=== PATIENT | female | born 1965 | race Caucasian/White ===

== ENCOUNTER 2017-03-18 14:35 | Inpatient (IN) | payer OTHER ==
[~2017-03-18] VITALS: Ht 175.3 cm; Wt 93.4 kg
[~2017-03-18 14:35] MED LIST: ALPRAZOLAM0.25 M2 PO; ALTACE1.25 MG PO; ASPIR 8181 M1 PO; ERGOCALCIF50000 UNIT PO; GABAPENTIN300 MG PO; HUMALOG100 UNIT/2 SC; LANTUS 3 M100 UNITS1 SC; NORCO 5/3251 TABLET PO; NOVOLOG PE100 UNITS/ SC; SYNTHROID88 MCG PO; ZOFRAN ODT4 MG PO
[2017-03-18 17:08] LABS: EOSINOPHIL (%) 0.2 % (0-5); HEMATOCRIT 45.5 % (36.0-46.0); IMMATURE GRANULOCYTE (%) 0.3 % (0.0-0.7); INSTRUMENT ABS NEUTROPHIL CT 10.6 K/uL; LYMPHOCYTE COUNT 1.1 K/uL (1.0-2.8); MCH 30.9 PG (29.0-34.0); MCHC 32.3 G/DL (30.0-36.0); MCV 95.8 FL (83-99); MONOCYTE (%) 5.2 % (3-12); MONOCYTE COUNT 0.7 K/uL (0-0.8); NEUTROPHIL (%) 85.1 % (45-76); NEUTROPHIL COUNT 10.6 K/uL (1.8-6.4); PLATELET COUNT 215 K/uL (156-360); RBC DIS.WIDTH-CV 12.3 % (11.8-14.6); RBC DIS.WIDTH-SD 43.9 % (39-53); RED BLOOD COUNT 4.75 M/uL (3.80-5.20); WHITE BLOOD COUNT 12.4 K/uL (4.1-10.2)
[2017-03-18 17:23] LABS: CHLORIDE 108 mEq/L (99-109); POTASSIUM 4.2 mEq/L (3.7-5.4); SODIUM 141 mEq/L (136-147)
[2017-03-18 17:25] LABS: GLUCOSE 155 mg/dL (70-99)
[2017-03-18 17:26] LABS: ANION GAP 14 MEQ/L (2-14)
[2017-03-18 17:27] LABS: TOTAL BILIRUBIN 0.7 mg/dL (0.0-1.0)
[2017-03-18 17:29] LABS: ALKALINE PHOSPHATASE 60 IU/L (3-129); GFR ESTIMATE (CALCULATED) 39 mL/min/
[2017-03-18 17:30] LABS: UREA NITROGEN (BUN) 33 mg/dL (9-23)
[2017-03-18 17:32] LABS: TROP-I INTERPRETATION NEGATIVE; TROPONIN-I 0.02 ng/mL (0.0-0.30)
[2017-03-18 18:20] LABS: C DIFF TOXIN NEGATIVE (NEGATIVE)
[2017-03-18 18:23] LABS: PROBE CHECK PASS; SPECIMEN PROCESSING CONTROL PASS
[2017-03-18] MEDS ORDERED: HUMALOG100 UNIT/2 SC (20:02)
[2017-03-18] MEDS ORDERED: TOUJEO SOL300 UNIT/1 SC ×2 (20:02→23:43)
[2017-03-18] MEDS ORDERED: CHOLEST OFF450 MG PO (20:04)
[2017-03-18 23:19] VITALS: BP 143/68
[2017-03-18] MEDS ORDERED: HUMALOG MI100 UNIT/1 SC (23:43)
[2017-03-19 04:00] VITALS: BP 125/78
[2017-03-19 06:26] LABS: POINT-OF-CARE METER ID UU13113725
[2017-03-19 07:48] VITALS: BP 133/76
[2017-03-19 10:24] LABS: EOSINOPHIL (%) 0 % (0-5); IMMATURE GRANULOCYTE (%) 0.6 % (0.0-0.7); IMMATURE GRANULOCYTE COUNT 0.1 K/uL; INSTRUMENT ABS NEUTROPHIL CT 8.5 K/uL; MCH 30.9 PG (29.0-34.0); MCHC 31.9 G/DL (30.0-36.0); MCV 96.8 FL (83-99); MEAN PLAT.VOLUME 11.3 uM^3 (9.5-12.4); MONOCYTE (%) 6.1 % (3-12); MONOCYTE COUNT 0.6 K/uL (0-0.8); NEUTROPHIL (%) 83.2 % (45-76); NEUTROPHIL COUNT 8.5 K/uL (1.8-6.4); PLATELET COUNT 182 K/uL (156-360); RBC DIS.WIDTH-CV 12.7 % (11.8-14.6); RBC DIS.WIDTH-SD 45.5 % (39-53); RED BLOOD COUNT 3.72 M/uL (3.80-5.20); WHITE BLOOD COUNT 10.2 K/uL (4.1-10.2)
[2017-03-19 10:53] LABS: ANION GAP 7 MEQ/L (2-14); CHLORIDE 108 MEQ/L (99-109); GFR ESTIMATE (CALCULATED) > 59 mL/min/; POTASSIUM 4.6 MEQ/L (3.7-5.4); SAMPLE HEMOLYSIS CHECK 0; SAMPLE ICTERIC CHECK 0; SAMPLE LIPEMIA CHECK 0; SODIUM 139 MEQ/L (136-147); UREA NITROGEN (BUN) 30 mg/dL (9-23)
[2017-03-19 10:55] LABS: GLUCOSE 316 mg/dL (70-99)
[2017-03-19 11:46] VITALS: BP 147/71
[2017-03-19 15:45] LABS: HEMATOCRIT 38.1 % (36.0-46.0); MCV 96.5 FL (83-99)
[2017-03-19 19:25] LABS: POINT-OF-CARE METER ID UU13113725; POINT-OF-CARE USER ID 611181321
[2017-03-19 19:41] VITALS: BP 176/96
[2017-03-19 21:18] LABS: POINT-OF-CARE METER ID UU13113725
[2017-03-19 21:58] LABS: HEMATOCRIT 35.7 % (36.0-46.0); MCV 96.2 FL (83-99)
[2017-03-19 23:27] VITALS: BP 176/78
[2017-03-20 02:04] LABS: POINT-OF-CARE METER ID UU13113725; POINT-OF-CARE USER ID 611181321
[2017-03-20 03:52] VITALS: BP 145/70
[2017-03-20 06:51] LABS: EOSINOPHIL (%) 0.4 % (0-5); HEMATOCRIT 35.1 % (36.0-46.0); IMMATURE GRANULOCYTE (%) 0.4 % (0.0-0.7); INSTRUMENT ABS NEUTROPHIL CT 7.2 K/uL; LYMPHOCYTE COUNT 2.2 K/uL (1.0-2.8); MCH 32.2 PG (29.0-34.0); MCHC 33.3 G/DL (30.0-36.0); MCV 96.7 FL (83-99); MONOCYTE (%) 6.3 % (3-12); MONOCYTE COUNT 0.6 K/uL (0-0.8); NEUTROPHIL (%) 70.9 % (45-76); NEUTROPHIL COUNT 7.2 K/uL (1.8-6.4); PLATELET COUNT 173 K/uL (156-360); RBC DIS.WIDTH-CV 12.5 % (11.8-14.6); RBC DIS.WIDTH-SD 44.2 % (39-53); RED BLOOD COUNT 3.63 M/uL (3.80-5.20); WHITE BLOOD COUNT 10.1 K/uL (4.1-10.2)
[2017-03-20 07:33] LABS: ANION GAP 10 MEQ/L (2-14); CHLORIDE 106 MEQ/L (99-109); GFR ESTIMATE (CALCULATED) > 59 mL/min/; GLUCOSE 238 mg/dL (70-99); POTASSIUM 4.4 MEQ/L (3.7-5.4); SAMPLE HEMOLYSIS CHECK 0; SAMPLE ICTERIC CHECK 0; SAMPLE LIPEMIA CHECK 0; SODIUM 140 MEQ/L (136-147); UREA NITROGEN (BUN) 16 mg/dL (9-23)
[2017-03-20 07:53] LABS: ADD MIUA? YES; BILIRUBIN NEGATIVE; BLOOD SMALL; COLOR YELLOW ((YELLOW)); GLUCOSE (STRIP) >=500; KETONES 20; LEUKOCYTES SMALL; NITRITE NEGATIVE; PROTEIN (STRIP) NEGATIVE; SPECIFIC GRAVITY 1.015 (1.000-1.030); UROBILINOGEN 0.2 MG/DL (0.2-1.0)
[2017-03-20 07:55] VITALS: BP 174/78
[2017-03-20 08:08] LABS: BACTERIA RARE /HPF; EPITHELIAL CELLS RARE /HPF; MUCUS TRACE /LPF; RED BLOOD CELLS 0-5 /HPF (0-5); UCUL ADDED? YES
[2017-03-20 11:59] LABS: POINT-OF-CARE METER ID UU13113675
[2017-03-20 14:57] LABS: HEMATOCRIT 37.1 % (36.0-46.0); MCV 96.6 FL (83-99)
[2017-03-20 15:47] VITALS: BP 139/63
[2017-03-20 21:59] LABS: HEMATOCRIT 36.5 % (36.0-46.0); MCV 98.1 FL (83-99)
[2017-03-20 22:13] LABS: POINT-OF-CARE METER ID UU13113725
[2017-03-21] VITALS (14 sets, daily range): BP systolic 79–138; BP diastolic 42–72
[2017-03-21 06:20] LABS: POINT-OF-CARE METER ID UU13113725
[2017-03-21 06:26] LABS: EOSINOPHIL (%) 0 % (0-5); HEMATOCRIT 35.3 % (36.0-46.0); IMMATURE GRANULOCYTE (%) 0.5 % (0.0-0.7); IMMATURE GRANULOCYTE COUNT 0.1 K/uL; INSTRUMENT ABS NEUTROPHIL CT 12.4 K/uL; LYMPHOCYTE COUNT 1.5 K/uL (1.0-2.8); MCH 31.2 PG (29.0-34.0); MCHC 31.4 G/DL (30.0-36.0); MCV 99.2 FL (83-99); MEAN PLAT.VOLUME 11.2 uM^3 (9.5-12.4); MONOCYTE COUNT 1.1 K/uL (0-0.8); NEUTROPHIL (%) 82.2 % (45-76); NEUTROPHIL COUNT 12.4 K/uL (1.8-6.4); PLATELET COUNT 192 K/uL (156-360); RBC DIS.WIDTH-CV 12.6 % (11.8-14.6); RED BLOOD COUNT 3.56 M/uL (3.80-5.20); WHITE BLOOD COUNT 15.1 K/uL (4.1-10.2)
[2017-03-21 06:54] LABS: ANION GAP 22 MEQ/L (2-14); CHLORIDE 100 MEQ/L (99-109); GFR ESTIMATE (CALCULATED) 50 mL/min/; GLUCOSE 321 mg/dL (70-99); POTASSIUM 4.9 MEQ/L (3.7-5.4); SAMPLE HEMOLYSIS CHECK 1; SAMPLE ICTERIC CHECK 0; SAMPLE LIPEMIA CHECK 0; SODIUM 134 MEQ/L (136-147)
[2017-03-21 06:57] LABS: UREA NITROGEN (BUN) 32 mg/dL (9-23)
[2017-03-21 07:31] LABS: ERTH.SED.RATE 12 MM/HR (0-30)
[2017-03-21 10:08] LABS: HEMATOCRIT 34.3 % (36.0-46.0); MCV 99.1 FL (83-99)
[2017-03-21 14:45] LABS: GLUCOSE 613 mg/dL (70-99)
[2017-03-21 14:51] LABS: HEMATOCRIT 34.6 % (36.0-46.0); MCV 99.1 FL (83-99)
[2017-03-21 17:06] LABS: GLUCOSE 527 mg/dL (70-99)
[2017-03-21 17:44] LABS: POINT-OF-CARE METER ID UU13113725
[2017-03-21 17:46] LABS: POINT-OF-CARE METER ID UU13113725
[2017-03-21 17:46] LABS: POINT-OF-CARE METER ID UU13113725
[2017-03-21 18:32] LABS: METH RESISTANT S AUREUS PCR NEGATIVE (NEGATIVE)
[2017-03-21 19:40] LABS: PROBE CHECK PASS; SPECIMEN PROCESSING CONTROL PASS
[2017-03-21 20:39] LABS: HEMATOCRIT 33.5 % (36.0-46.0)
[2017-03-21 21:07] LABS: ANION GAP 21 MEQ/L (2-14); CHLORIDE 101 MEQ/L (99-109); GFR ESTIMATE (CALCULATED) 42 mL/min/; POTASSIUM 4.3 MEQ/L (3.7-5.4); SAMPLE HEMOLYSIS CHECK 0; SAMPLE ICTERIC CHECK 0; SAMPLE LIPEMIA CHECK 0; SODIUM 135 MEQ/L (136-147); UREA NITROGEN (BUN) 36 mg/dL (9-23)
[2017-03-21 21:11] LABS: GLUCOSE 447 mg/dL (70-99)
[2017-03-21 21:40] LABS: POINT-OF-CARE METER ID UU14162636
[2017-03-21 22:28] LABS: POINT-OF-CARE METER ID UU14162636
[2017-03-21 23:38] LABS: POINT-OF-CARE METER ID UU14162636
[2017-03-22] VITALS (22 sets, daily range): BP systolic 93–151; BP diastolic 44–78
[2017-03-22 00:38] LABS: POINT-OF-CARE METER ID UU14162636
[2017-03-22 00:46] LABS: CHLORIDE 105 mEq/L (99-109); SODIUM 136 mEq/L (136-147)
[2017-03-22 00:47] LABS: GLUCOSE 294 mg/dL (70-99)
[2017-03-22 00:49] LABS: ANION GAP 9 MEQ/L (2-14)
[2017-03-22 00:51] LABS: GFR ESTIMATE (CALCULATED) 36 mL/min/
[2017-03-22 00:52] LABS: UREA NITROGEN (BUN) 38 mg/dL (9-23)
[2017-03-22 01:39] LABS: POINT-OF-CARE METER ID UU14208751
[2017-03-22 02:51] LABS: POINT-OF-CARE METER ID UU14208751
[2017-03-22 03:59] LABS: POINT-OF-CARE METER ID UU14208751
[2017-03-22 04:54] LABS: POINT-OF-CARE METER ID UU14208751
[2017-03-22 05:56] LABS: POINT-OF-CARE METER ID UU13113803
[2017-03-22 06:37] LABS: ANION GAP 8 MEQ/L (2-14); CHLORIDE 108 MEQ/L (99-109); GFR ESTIMATE (CALCULATED) 50 mL/min/; POTASSIUM 4.4 MEQ/L (3.7-5.4); SAMPLE HEMOLYSIS CHECK 0; SAMPLE ICTERIC CHECK 0; SAMPLE LIPEMIA CHECK 0; SODIUM 139 MEQ/L (136-147); UREA NITROGEN (BUN) 33 mg/dL (9-23)
[2017-03-22 06:40] LABS: GLUCOSE 139 mg/dL (70-99)
[2017-03-22 06:59] LABS: POINT-OF-CARE METER ID UU14208751
[2017-03-22 08:10] LABS: POINT-OF-CARE METER ID UU14208751
[2017-03-22 08:53] LABS: BASOPHIL COUNT 0.1 K/uL (0-0.1); EOSINOPHIL (%) 0.4 % (0-5); HEMATOCRIT 34.1 % (36.0-46.0); IMMATURE GRANULOCYTE (%) 0.3 % (0.0-0.7); INSTRUMENT ABS NEUTROPHIL CT 7.5 K/uL; LYMPHOCYTE COUNT 2.4 K/uL (1.0-2.8); MCH 31.3 PG (29.0-34.0); MCHC 32.8 G/DL (30.0-36.0); MCV 95.3 FL (83-99); MEAN PLAT.VOLUME 10.7 uM^3 (9.5-12.4); MONOCYTE (%) 7.1 % (3-12); MONOCYTE COUNT 0.8 K/uL (0-0.8); NEUTROPHIL (%) 69.2 % (45-76); NEUTROPHIL COUNT 7.5 K/uL (1.8-6.4); PLATELET COUNT 194 K/uL (156-360); RBC DIS.WIDTH-SD 45.6 % (39-53); RED BLOOD COUNT 3.58 M/uL (3.80-5.20); WHITE BLOOD COUNT 10.8 K/uL (4.1-10.2)
[2017-03-22 09:14] LABS: POINT-OF-CARE METER ID UU13113803
[2017-03-22 09:18] LABS: ANION GAP 9 MEQ/L (2-14); CHLORIDE 108 MEQ/L (99-109); GFR ESTIMATE (CALCULATED) 55 mL/min/; GLUCOSE 140 mg/dL (70-99); POTASSIUM 4.1 MEQ/L (3.7-5.4); SAMPLE HEMOLYSIS CHECK 0; SAMPLE ICTERIC CHECK 0; SAMPLE LIPEMIA CHECK 0; SODIUM 141 MEQ/L (136-147); UREA NITROGEN (BUN) 30 mg/dL (9-23)
[2017-03-22 10:41] LABS: POINT-OF-CARE METER ID UU13113731; POINT-OF-CARE USER ID 612031313
[2017-03-22 11:28] LABS: POINT-OF-CARE METER ID UU13113803
[2017-03-22 12:36] LABS: POINT-OF-CARE METER ID UU13113803
[2017-03-22 13:19] LABS: ANION GAP 9 MEQ/L (2-14); CHLORIDE 107 MEQ/L (99-109); GFR ESTIMATE (CALCULATED) > 59 mL/min/; GLUCOSE 185 mg/dL (70-99); POTASSIUM 4.1 MEQ/L (3.7-5.4); SAMPLE HEMOLYSIS CHECK 0; SAMPLE ICTERIC CHECK 0; SAMPLE LIPEMIA CHECK 0; SODIUM 139 MEQ/L (136-147); UREA NITROGEN (BUN) 28 mg/dL (9-23)
[2017-03-22 13:55] LABS: POINT-OF-CARE METER ID UU14208751
[2017-03-22 15:59] LABS: POINT-OF-CARE METER ID UU14208751
[2017-03-22 16:35] LABS: ANION GAP 6 MEQ/L (2-14); CHLORIDE 105 MEQ/L (99-109); GFR ESTIMATE (CALCULATED) > 59 mL/min/; GLUCOSE 287 mg/dL (70-99); SAMPLE HEMOLYSIS CHECK 0; SAMPLE ICTERIC CHECK 0; SAMPLE LIPEMIA CHECK 0; SODIUM 136 MEQ/L (136-147); UREA NITROGEN (BUN) 26 mg/dL (9-23)
[2017-03-22 20:47] LABS: POINT-OF-CARE METER ID UU13113731
[2017-03-23] VITALS (14 sets, daily range): BP systolic 115–180; BP diastolic 66–122
[2017-03-23 06:00] LABS: EOSINOPHIL (%) 1.6 % (0-5); EOSINOPHIL COUNT 0.1 K/uL (0-0.3); HEMATOCRIT 38.6 % (36.0-46.0); IMMATURE GRANULOCYTE (%) 0.2 % (0.0-0.7); INSTRUMENT ABS NEUTROPHIL CT 3.1 K/uL; LYMPHOCYTE COUNT 2.8 K/uL (1.0-2.8); MCH 30.7 PG (29.0-34.0); MCHC 32.1 G/DL (30.0-36.0); MCV 95.5 FL (83-99); MONOCYTE (%) 7.6 % (3-12); MONOCYTE COUNT 0.5 K/uL (0-0.8); NEUTROPHIL (%) 47.2 % (45-76); NEUTROPHIL COUNT 3.1 K/uL (1.8-6.4); RBC DIS.WIDTH-CV 13.2 % (11.8-14.6); RBC DIS.WIDTH-SD 46.9 % (39-53); RED BLOOD COUNT 4.04 M/uL (3.80-5.20); WHITE BLOOD COUNT 6.4 K/uL (4.1-10.2)
[2017-03-23 06:34] LABS: ALKALINE PHOSPHATASE 49 IU/L (3-129); ANION GAP 6 MEQ/L (2-14); CHLORIDE 105 MEQ/L (99-109); GFR ESTIMATE (CALCULATED) > 59 mL/min/; SAMPLE HEMOLYSIS CHECK 1; SAMPLE ICTERIC CHECK 0; SAMPLE LIPEMIA CHECK 0; SODIUM 141 MEQ/L (136-147); TOTAL BILIRUBIN 0.5 MG/DL (0.0-1.0); UREA NITROGEN (BUN) 18 mg/dL (9-23)
[2017-03-23 06:36] LABS: GLUCOSE 110 mg/dL (70-99)
[2017-03-23 07:06] LABS: MEAN PLAT.VOLUME 11.3 uM^3 (9.5-12.4); PLATELET CLUMPS PRESENT - PLATELET COUNT APPEARS ADQ.; PLATELET COUNT 182 K/uL (156-360)
[2017-03-23 07:25] LABS: TROP-I INTERPRETATION POSITIVE; TROPONIN-I 0.84 ng/mL (0.0-0.30)
[2017-03-23 11:48] LABS: POINT-OF-CARE METER ID UU13113803
[2017-03-23 12:58] LABS: TROP-I INTERPRETATION POSITIVE; TROPONIN-I 0.64 ng/mL (0.0-0.30)
[2017-03-23 17:04] LABS: POINT-OF-CARE METER ID UU13113803
[2017-03-23 21:54] LABS: POINT-OF-CARE METER ID UU14208751
[2017-03-24] VITALS (11 sets, daily range): BP systolic 138–198; BP diastolic 72–94
[2017-03-24 08:57] LABS: POINT-OF-CARE METER ID UU13113803
[2017-03-24 12:12] LABS: POINT-OF-CARE METER ID UU13113803
[2017-03-24 17:40] LABS: POINT-OF-CARE METER ID UU13113803
[2017-03-24 21:26] LABS: POINT-OF-CARE METER ID UU14208753
[2017-03-25 03:31] VITALS: BP 186/85
[2017-03-25 06:09] LABS: EOSINOPHIL (%) 1.4 % (0-5); EOSINOPHIL COUNT 0.1 K/uL (0-0.3); HEMATOCRIT 34.7 % (36.0-46.0); IMMATURE GRANULOCYTE (%) 0.5 % (0.0-0.7); INSTRUMENT ABS NEUTROPHIL CT 3.1 K/uL; LYMPHOCYTE COUNT 2.3 K/uL (1.0-2.8); MCH 31.2 PG (29.0-34.0); MCHC 32.9 G/DL (30.0-36.0); MCV 95.1 FL (83-99); MEAN PLAT.VOLUME 10.8 uM^3 (9.5-12.4); MONOCYTE (%) 7.8 % (3-12); MONOCYTE COUNT 0.5 K/uL (0-0.8); NEUTROPHIL (%) 51.7 % (45-76); NEUTROPHIL COUNT 3.1 K/uL (1.8-6.4); PLATELET COUNT 191 K/uL (156-360); RBC DIS.WIDTH-CV 12.9 % (11.8-14.6); RBC DIS.WIDTH-SD 45.1 % (39-53); RED BLOOD COUNT 3.65 M/uL (3.80-5.20); WHITE BLOOD COUNT 5.9 K/uL (4.1-10.2)
[2017-03-25 06:31] LABS: ANION GAP 9 MEQ/L (2-14); CHLORIDE 103 MEQ/L (99-109); GFR ESTIMATE (CALCULATED) > 59 mL/min/; GLUCOSE 55 mg/dL (70-99); POTASSIUM 3.3 MEQ/L (3.7-5.4); SAMPLE HEMOLYSIS CHECK 0; SAMPLE ICTERIC CHECK 0; SAMPLE LIPEMIA CHECK 0; SODIUM 145 MEQ/L (136-147); UREA NITROGEN (BUN) 10 mg/dL (9-23)
[2017-03-25 06:34] LABS: TROP-I INTERPRETATION INDETERMINATE; TROPONIN-I 0.35 ng/mL (0.0-0.30)
[2017-03-25 06:34] LABS: POINT-OF-CARE METER ID UU14188577
[2017-03-25 07:36] VITALS: BP 162/98
[2017-03-25 07:45] VITALS: BP 168/84
[2017-03-25 09:19] VITALS: BP 122/72
[2017-03-25 11:35] VITALS: BP 174/82
[2017-03-25 11:35] LABS: POINT-OF-CARE METER ID UU14117124
[2017-03-25] MEDS ORDERED: RAMIPRIL10 MG PO (12:45)
[2017-03-25] MEDS ORDERED: AMLODIPINE BESYL5 MG PO (12:45)
== END 2017-03-25 14:14 | disposition home or self-care (01) | DRG 682 ==
LOC: EME 14:35 → EDOF 20:55 → ENRESERV 21:10 → CANRESERV 21:17 → 4WEST 22:23 → 5EAST 22:23 → EDOF 22:23 → ENRESERV 22:28 → 5EAST 22:38 → ENRESERV 22:45 → 5EAST 22:59 → ENRESERV 03-21 16:27 → 4WEST 03-21 17:10 → ENRESERV 03-24 11:42 → 3EAST 03-24 17:52
PROVIDERS: Emergency Medicine; Family Medicine; Internal Medicine; Internal Medicine Critical Care Medicine; Internal Medicine Gastroenterology; Obstetrics & Gynecology
DX: N17.9 Acute kidney failure, unspecified (principal); K55.039 Acute (reversible) ischemia of large intestine, extent unspecified; E13.10 Other specified diabetes mellitus with ketoacidosis without coma; A04.8 Other specified bacterial intestinal infections; K63.3 Ulcer of intestine; N39.0 Urinary tract infection, site not specified; E03.9 Hypothyroidism, unspecified; E86.0 Dehydration; I25.10 Atherosclerotic heart disease of native coronary artery without angina pectoris; I10 Essential (primary) hypertension; E78.5 Hyperlipidemia, unspecified; K21.9 Gastro-esophageal reflux disease without esophagitis; E11.42 Type 2 diabetes mellitus with diabetic polyneuropathy; I95.9 Hypotension, unspecified; E87.8 Other disorders of electrolyte and fluid balance, not elsewhere classified; R74.8 Abnormal levels of other serum enzymes; F41.9 Anxiety disorder, unspecified; Z79.82 Long term (current) use of aspirin; I25.2 Old myocardial infarction; Z90.49 Acquired absence of other specified parts of digestive tract; Z79.4 Long term (current) use of insulin; Z83.3 Family history of diabetes mellitus; Z82.49 Family history of ischemic heart disease and other diseases of the circulatory system
CPT/HCPCS: 71010; 74176; 80048; 80048 91; 80053; 80069; 81003; 82947; 82947 91; 82948; 83605; 83735; 83880; 84100; 84484; 85014; 85018; 85025; 85651; 86140; 86850; 86900; 86901; 87040; 87086; 87493; 87641; 88305; 93005; 93306; 99281; 99285; C9113; J0295; J0360; J0744; J1644; J1815; J2310; J2405; J7030; J7050; S0030

== ENCOUNTER 2017-12-24 09:48 | Inpatient (IN) | payer OTHER ==
[2017-12-24] VITALS (10 sets, daily range): BP systolic 91–143; BP diastolic 51–79
[~2017-12-24] VITALS: Ht 175.3 cm; Wt 100.5 kg
[~2017-12-24 09:48] MED LIST changes: +AMLODIPINE BESYL5 MG PO; +CHOLEST OFF450 MG PO; +HUMALOG MI100 UNIT/1 SC; +RAMIPRIL10 MG PO; +SYNTHROID112 MCG PO; -SYNTHROID88 MCG PO; +TOUJEO SOL300 UNIT/1 SC
[2017-12-24 10:42] LABS: BASOPHIL (%) 0.5 % (0-1); BASOPHIL COUNT 0.1 K/uL (0-0.1); EOSINOPHIL (%) 1.2 % (0-5); EOSINOPHIL COUNT 0.1 K/uL (0-0.3); HEMOGLOBIN 13.9 G/DL (11.9-15.5); IMMATURE GRANULOCYTE (%) 0.3 % (0.0-0.7); LYMPHOCYTE COUNT 3.2 K/uL (1.0-2.8); MCH 31.6 PG (29.0-34.0); MCHC 33.1 G/DL (30.0-36.0); MCV 95.5 FL (83-99); MONOCYTE (%) 4.3 % (3-12); MONOCYTE COUNT 0.5 K/uL (0-0.8); NEUTROPHIL (%) 63.7 % (45-76); NEUTROPHIL COUNT 6.8 K/uL (1.8-6.4); PLATELET COUNT 178 K/uL (156-360); RBC DIS.WIDTH-CV 12.3 % (11.8-14.6); RBC DIS.WIDTH-SD 42.8 % (39-53); WHITE BLOOD COUNT 10.6 K/uL (4.1-10.2)
[2017-12-24 10:49] LABS: ALBUMIN 2.8 g/dL (3.2-4.8)
[2017-12-24 10:50] LABS: CHLORIDE 111 mEq/L (99-109); POTASSIUM 3.7 mEq/L (3.7-5.4); SODIUM 139 mEq/L (136-147)
[2017-12-24 10:52] LABS: GLUCOSE 175 mg/dL (70-99)
[2017-12-24 10:54] LABS: TOTAL BILIRUBIN 0.6 mg/dL (0.0-1.0)
[2017-12-24 10:55] LABS: ALKALINE PHOSPHATASE 49 IU/L (3-129)
[2017-12-24 10:56] LABS: CREATININE 1.2 mg/dL (0.6-1.3); GFR ESTIMATE (CALCULATED) 50 mL/min/
[2017-12-24 10:57] LABS: AST (GOT) 22 IU/L (2-34); UREA NITROGEN (BUN) 24 mg/dL (9-23)
[2017-12-24 10:58] LABS: ALT (GPT) 36 IU/L (3-49)
[2017-12-24 11:44] LABS: PTT 24.3 SEC (25-37)
[2017-12-24 11:51] LABS: LIPASE 28 U/L (1.0-51.0)
[2017-12-24 11:57] LABS: TROP-I INTERPRETATION NEGATIVE; TROPONIN-I 0.01 ng/mL (0.0-0.30)
[2017-12-24 12:45] LABS: AMPHETAMINE NEGATIVE (500 ng/mL); BARBITURATES NEGATIVE (200 ng/mL); BENZODIAZEPINES NEGATIVE (150 ng/mL); BUPRENORPHINE NEGATIVE (10 ng/mL); COCAINE NEGATIVE (150 ng/mL); METHADONE NEGATIVE (200 ng/mL); METHAMPHETAMINE NEGATIVE (500 ng/mL); OPIATES (MORPHINE) NEGATIVE (100 ng/mL); OXYCODONE NEGATIVE (100 ng/mL); PHENCYCLIDINE NEGATIVE (25 ng/mL); PROPOXYPHENE NEGATIVE (300 ng/mL); THC CANNABINOIDS NEGATIVE (50 ng/mL); TRICYCLIC ANTIDEPRESSANTS NEGATIVE (300 ng/mL)
[2017-12-24 13:17] LABS: C DIFF TOXIN POSITIVE (NEGATIVE)
[2017-12-24 13:47] LABS: COMMENTS - BLOOD GASES A+C+; SITE RR
[2017-12-24 13:48] LABS: DEVICE VENTILATOR; FI02 100 %; MECHANICAL RATE 16 resp/min; MODE AC; PEEP 5 CM/H20; TIDAL VOLUME 500 ML; TOTAL RESP RATE 20 resp/min; pH 7.37 (7.35-7.45)
[2017-12-24 13:49] LABS: O2 SATURATION (CALCULATED) 100.1 % (95-99); PCO2 34 mm Hg (35-45); PO2 569 mm Hg (80-100)
[2017-12-24 13:50] LABS: BASE EXCESS -4.8 mEq/L (-3 to +3); BICARBONATE 19.7 mEq/L (22-26); CARBOXY HGB 1.2 % (0-5); METHEMOGLOBIN 1.3 % (0-1.5)
[2017-12-24] MEDS ORDERED: RAMIPRIL10 MG PO (13:50)
[2017-12-24 23:47] LABS: HEMATOCRIT 35.2 % (36.0-46.0); MCV 97.2 FL (83-99)
[2017-12-24 23:48] LABS: HEMOGLOBIN 11.4 G/DL (11.9-15.5)
[2017-12-25] VITALS (22 sets, daily range): BP systolic 108–168; BP diastolic 50–76
[2017-12-25 05:31] LABS: BASOPHIL (%) 0.4 % (0-1); EOSINOPHIL (%) 0 % (0-5); HEMATOCRIT 33.4 % (36.0-46.0); HEMOGLOBIN 10.6 G/DL (11.9-15.5); IMMATURE GRANULOCYTE (%) 0.3 % (0.0-0.7); LYMPHOCYTE (%) 11.4 % (15-42); LYMPHOCYTE COUNT 1.3 K/uL (1.0-2.8); MCH 30.9 PG (29.0-34.0); MCHC 31.7 G/DL (30.0-36.0); MCV 97.4 FL (83-99); MONOCYTE (%) 5.4 % (3-12); MONOCYTE COUNT 0.6 K/uL (0-0.8); NEUTROPHIL (%) 82.5 % (45-76); NEUTROPHIL COUNT 9.2 K/uL (1.8-6.4); PLATELET COUNT 154 K/uL (156-360); RBC DIS.WIDTH-CV 12.8 % (11.8-14.6); WHITE BLOOD COUNT 11.2 K/uL (4.1-10.2)
[2017-12-25 05:32] LABS: RED BLOOD COUNT 3.43 M/uL (3.80-5.20)
[2017-12-25 05:57] LABS: CHLORIDE 113 MEQ/L (99-109); GFR ESTIMATE (CALCULATED) > 59 mL/min/; GLUCOSE 194 mg/dL (70-99); MAGNESIUM 1.7 mg/dl (1.3-2.7); PHOSPHORUS 3.6 mg/dL (2.5-4.9); SODIUM 140 MEQ/L (136-147); UREA NITROGEN (BUN) 22 mg/dL (9-23)
[2017-12-25 06:07] LABS: POTASSIUM 4.6 MEQ/L (3.7-5.4)
[2017-12-25 11:44] LABS: APPEARANCE CLEAR ((CLEAR)); BILIRUBIN NEGATIVE; BLOOD NEGATIVE; COLOR AMBER ((YELLOW)); GLUCOSE (STRIP) 50; KETONES NEGATIVE; LEUKOCYTES NEGATIVE; NITRITE NEGATIVE; PROTEIN (STRIP) 100; SPECIFIC GRAVITY 1.039 (1.000-1.030)
[2017-12-25 11:53] LABS: BACTERIA RARE /HPF; EPITHELIAL CELLS RARE /HPF; MUCUS NONE SEEN /LPF; RED BLOOD CELLS 0-5 /HPF (0-5); UCUL ADDED? NO; WHITE BLOOD CELLS 0-5 /HPF (0-5)
[2017-12-25 16:06] LABS: STOOL OCCULT BLD 1ST SPECIMEN POSITIVE
[2017-12-25 16:09] LABS: HEMATOCRIT 33.3 % (36.0-46.0); HEMOGLOBIN 10.6 G/DL (11.9-15.5)
[2017-12-26] VITALS (23 sets, daily range): BP systolic 110–157; BP diastolic 52–77
[2017-12-26 06:08] LABS: BASOPHIL (%) 0.4 % (0-1); EOSINOPHIL (%) 0 % (0-5); HEMATOCRIT 31.8 % (36.0-46.0); IMMATURE GRANULOCYTE (%) 0.3 % (0.0-0.7); LYMPHOCYTE (%) 13.4 % (15-42); LYMPHOCYTE COUNT 1.2 K/uL (1.0-2.8); MCH 30.9 PG (29.0-34.0); MCHC 31.4 G/DL (30.0-36.0); MCV 98.1 FL (83-99); MONOCYTE (%) 4.8 % (3-12); MONOCYTE COUNT 0.4 K/uL (0-0.8); NEUTROPHIL (%) 81.1 % (45-76); NEUTROPHIL COUNT 7.3 K/uL (1.8-6.4); PLATELET COUNT 151 K/uL (156-360); RBC DIS.WIDTH-CV 12.7 % (11.8-14.6); RBC DIS.WIDTH-SD 45.8 % (39-53); RED BLOOD COUNT 3.24 M/uL (3.80-5.20); WHITE BLOOD COUNT 9.1 K/uL (4.1-10.2)
[2017-12-26 06:39] LABS: CHLORIDE 112 MEQ/L (99-109); CREATININE 0.9 MG/DL (0.6-1.3); GFR ESTIMATE (CALCULATED) > 59 mL/min/; GLUCOSE 248 mg/dL (70-99); POTASSIUM 4.4 MEQ/L (3.7-5.4); SODIUM 142 MEQ/L (136-147); UREA NITROGEN (BUN) 16 mg/dL (9-23)
[2017-12-27] VITALS (16 sets, daily range): BP systolic 116–171; BP diastolic 57–93
[2017-12-27 05:34] LABS: HEMATOCRIT 34.4 % (36.0-46.0); MCH 31.5 PG (29.0-34.0); MCV 98.6 FL (83-99); PLATELET COUNT 160 K/uL (156-360); RBC DIS.WIDTH-CV 13.2 % (11.8-14.6); RBC DIS.WIDTH-SD 47.2 % (39-53); RED BLOOD COUNT 3.49 M/uL (3.80-5.20); WHITE BLOOD COUNT 9.4 K/uL (4.1-10.2)
[2017-12-27 06:14] LABS: CHLORIDE 109 MEQ/L (99-109); CREATININE 0.9 MG/DL (0.6-1.3); GFR ESTIMATE (CALCULATED) > 59 mL/min/; GLUCOSE 275 mg/dL (70-99); MAGNESIUM 1.6 mg/dl (1.3-2.7); POTASSIUM 4.1 MEQ/L (3.7-5.4); SODIUM 139 MEQ/L (136-147); UREA NITROGEN (BUN) 12 mg/dL (9-23)
[2017-12-27 06:15] LABS: PHOSPHORUS 1.7 mg/dL (2.5-4.9)
[2017-12-28 05:57] LABS: HEMATOCRIT 31.7 % (36.0-46.0); HEMOGLOBIN 10.2 G/DL (11.9-15.5); MCH 30.7 PG (29.0-34.0); MCHC 32.2 G/DL (30.0-36.0); MCV 95.5 FL (83-99); PLATELET COUNT 168 K/uL (156-360); RBC DIS.WIDTH-SD 45.5 % (39-53); RED BLOOD COUNT 3.32 M/uL (3.80-5.20); WHITE BLOOD COUNT 7.4 K/uL (4.1-10.2)
[2017-12-28 06:28] LABS: CHLORIDE 107 MEQ/L (99-109); CREATININE 0.8 MG/DL (0.6-1.3); GFR ESTIMATE (CALCULATED) > 59 mL/min/; GLUCOSE 216 mg/dL (70-99); MAGNESIUM 1.5 mg/dl (1.3-2.7); POTASSIUM 3.9 MEQ/L (3.7-5.4); SODIUM 143 MEQ/L (136-147); UREA NITROGEN (BUN) 10 mg/dL (9-23)
[2017-12-28 06:30] LABS: PHOSPHORUS 2.9 mg/dL (2.5-4.9)
[2017-12-28 08:35] VITALS: BP 164/98
[2017-12-28 16:04] VITALS: BP 147/64
[2017-12-29 00:14] VITALS: BP 164/73
[2017-12-29 06:17] LABS: HEMATOCRIT 34.7 % (36.0-46.0); HEMOGLOBIN 11.3 G/DL (11.9-15.5); MCH 30.6 PG (29.0-34.0); MCHC 32.6 G/DL (30.0-36.0); PLATELET COUNT 180 K/uL (156-360); RBC DIS.WIDTH-CV 12.8 % (11.8-14.6); RBC DIS.WIDTH-SD 44.6 % (39-53); RED BLOOD COUNT 3.69 M/uL (3.80-5.20); WHITE BLOOD COUNT 5.7 K/uL (4.1-10.2)
[2017-12-29 06:36] LABS: CHLORIDE 102 MEQ/L (99-109); CREATININE 0.7 MG/DL (0.6-1.3); GFR ESTIMATE (CALCULATED) > 59 mL/min/; GLUCOSE 216 mg/dL (70-99); MAGNESIUM 1.5 mg/dl (1.3-2.7); PHOSPHORUS 2.6 mg/dL (2.5-4.9); POTASSIUM 3.7 MEQ/L (3.7-5.4); SODIUM 144 MEQ/L (136-147); UREA NITROGEN (BUN) 8 mg/dL (9-23)
[2017-12-29 08:34] VITALS: BP 180/97
[2017-12-29 16:25] VITALS: BP 160/78
[2017-12-29] MEDS ORDERED: DUONEB 2.5-0.5 M3 ML AEROSOL (19:02)
== END 2017-12-29 19:49 | disposition home or self-care (01) | DRG 871 ==
LOC: EME 09:48 → 2EAST 12:46 → EDOF 12:46 → 4WEST 12:46 → ENRESERV 13:03 → 4WEST 14:35 → ENRESERV 12-27 10:42 → 2EAST 12-27 15:04
PROVIDERS: Emergency Medicine; Family Medicine; Specialist; Surgery
PROC: 0BH17EZ Insertion of Endotracheal Airway into Trachea, Via Natural or Artificial Opening (ICD-10-PCS; principal; 2017-12-24)
PROC: B546ZZA Ultrasonography of Right Subclavian Vein, Guidance (ICD-10-PCS; 2017-12-24)
PROC: 02HV33Z Insertion of Infusion Device into Superior Vena Cava, Percutaneous Approach (ICD-10-PCS; 2017-12-24)
PROC: 5A1935Z Respiratory Ventilation, Less than 24 Consecutive Hours (ICD-10-PCS; 2017-12-24)
DX: A41.9 Sepsis, unspecified organism (principal); R65.21 Severe sepsis with septic shock; A04.72 Enterocolitis due to Clostridium difficile, not specified as recurrent; J96.00 Acute respiratory failure, unspecified whether with hypoxia or hypercapnia; E87.2 Acidosis; E86.0 Dehydration; E83.39 Other disorders of phosphorus metabolism; K21.9 Gastro-esophageal reflux disease without esophagitis; E03.9 Hypothyroidism, unspecified; F41.9 Anxiety disorder, unspecified; F32.9 Major depressive disorder, single episode, unspecified; I10 Essential (primary) hypertension; E10.42 Type 1 diabetes mellitus with diabetic polyneuropathy; I25.10 Atherosclerotic heart disease of native coronary artery without angina pectoris; E66.01 Morbid (severe) obesity due to excess calories; Z79.4 Long term (current) use of insulin; I25.2 Old myocardial infarction; Z79.82 Long term (current) use of aspirin; Z68.32 Body mass index [BMI] 32.0-32.9, adult
CPT/HCPCS: 36600; 70450; 71045; 71260; 74177; 80048; 80053; 81003; 82272; 82803; 82948; 83605; 83690; 83735; 84100; 84484; 85014; 85018; 85025; 85027; 85610; 85730; 86850; 86900; 86901; 87040; 87070; 87177; 87205; 87493; 87506; 87641; 93005; 94002; 94640; 94799; 99202; 99281; 99285; C1751; J0744; J0780; J1644; J1815; J2250; J2310; J2405; J2543; J3010; J3370; J3475; J7030; S0028; S0030